=== PATIENT | male | born 1965 | race African-American/Black ===

== ENCOUNTER 2023-10-05 04:24 | Emergency (ER) | payer OTHER, SELFPAY ==
[2023-10-05 04:25] VITALS: BP 175/100
[2023-10-05 04:43] VITALS: BP 175/87
--- NOTE | 2023-10-05 04:54 | ED.GENMED ---
History of Present Illness
<DOMENIC Ralph - Last Filed: 10/05/23 05:20>
General
Chief Complaint: Musculo-Skeletal Complaint
Source: patient
Exam Limitations: none
Time Seen by Provider: 10/05/23 04:40
Nursing documentation reviewed up to this point in time: agreed with
Travel History
Have you had any contact with someone who has COVID-19?: No
Do you have any symptoms of coronavirus? Fever > 100 degrees, chills, cough, shortness of breath, sore throat, loss of taste or smell, muscle aches, or headache?: No
History of Present Illness
History of Present Illness:
This is a 58 year old male with a PMH of gout, who presents to the ED c/o left ankle pain and swelling x4 days. Pt states the pain has been worsening over the past couple days. He has been using a heating pad on it to no relief of his symptoms. Pt's
last gout flare was a couple of years ago but he states this pain feels similar to that. Pt has not taken any medications for the pain. He denies any fever, chills, CP, nauseam vomiting, or diarrhea. He does add that he has had intermittent upper
abdominal pain since the left ankle pain started. Pt denies alcohol, drug or tobacco use.
Past History
<DOMENIC Ralph - Last Filed: 10/05/23 05:20>
Past History
ED Past Medical History: Other (gout)
ED Past Surgical History: None
Social History
Tobacco: Non-smoker
Alcohol: None
Drug: None
Review of Systems
<DOMENIC Ralph - Last Filed: 10/05/23 05:20>
Review of Systems
Allergies reviewed?: Yes
All Other Systems: ROS reviewed and negative except as documented in HPI and ROS
Constitutional: Reports no symptoms; Denies fever or chills
EENT: Reports no symptoms; Denies other
Respiratory: Reports no symptoms; Denies trouble breathing
Cardiac: Reports no symptoms; Denies chest pain
ABD/GI: Reports abdominal pain; Denies nausea, vomiting or diarrhea
: Reports no symptoms
Musculoskeletal: Reports joint pain (left ankle) and joint swelling
Skin: Reports no symptoms
Neurological: Reports no symptoms
Psychiatric: Reports no symptoms
Phy Exam
<DOMENIC Ralph - Last Filed: 10/05/23 05:20>
General Physical Exam
General Presentation: well appearing and no apparent distress
General age: appears stated age
General Skin: warm and dry
General Habitus: obese
General Mental: alert
General Hydration: appears well hydrated
ENT Exam
ENT Exam: EOMI, pharynx normal, normocephalic and swallowing well
Cardiovascular Exam
Cardiovascular Exam: regular rate/rhythm, no edema, no murmur and normal peripheral pulses
Pulmonary Exam
Pulmonary Exam: lungs clear, no respiratory distress, no rales, no crackles, no rhonchi, no wheezing and no cough
Gastrointestinal Exam
Gastrointestinal Exam: normal bowel sounds, non tender, soft and non distended
Neurological Exam
Neurological Exam: alert and oriented x3
Musculoskeletal Exam
Musculoskeletal Exam: other (tender and edematous left ankle, limited ROM)
Skin Exam
Skin Exam: normal color and warm/dry
Psychiatric Exam
Psychiatric Exam: normal mood/affect
Course
<DOMENIC Ralph - Last Filed: 10/05/23 05:20>
Orders/Labs/Results
Orders:
Orders
10/05/23 05:05
Colchicine 1.2 mg PO NOW STA
Prednisone [Deltasone] 50 mg PO NOW STA
Vital Signs
Initial and Last Documented VS:
Initial Vital Signs
Temp Pulse Resp BP Pulse Ox
98.4 F 107 18 175/100 99
10/05/23 04:25 10/05/23 04:25 10/05/23 04:25 10/05/23 04:25 10/05/23 04:25
Last Documented Vital Signs
Temp Pulse Resp BP Pulse Ox
98.4 F 107 18 175/100 99
10/05/23 04:25 10/05/23 04:25 10/05/23 04:25 10/05/23 04:25 10/05/23 04:25
<Blaze Oakley DO - Last Filed: 10/05/23 05:08>
Orders/Labs/Results
Orders:
Orders
10/05/23 05:05
Colchicine 1.2 mg PO NOW STA
Prednisone [Deltasone] 50 mg PO NOW STA
Vital Signs
Initial and Last Documented VS:
Initial Vital Signs
Temp Pulse Resp BP Pulse Ox
98.4 F 107 18 175/100 99
10/05/23 04:25 10/05/23 04:25 10/05/23 04:25 10/05/23 04:25 10/05/23 04:25
Last Documented Vital Signs
Temp Pulse Resp BP Pulse Ox
98.4 F 107 18 175/100 99
10/05/23 04:25 10/05/23 04:25 10/05/23 04:25 10/05/23 04:25 10/05/23 04:25
<DOMENIC Ralph - Last Filed: 10/05/23 05:20>
*Critical Care Note
Total Time (30-74mins, 75-104mins- exclusive of procedures): Not Applicable
ED Attending Note
<DOMENIC Ralph - Last Filed: 10/05/23 05:20>
-
Portions of this chart may have been created with voice recognition software.� Occasional wrong word or��sound alike� substitutions may have occurred due to the inherent limitations of voice recognition software.
<Blaze Oakley, DO - Last Filed: 10/05/23 05:08>
ED Attending Note
Patient seen and examined by attending physician: Yes
I performed the substantive portion of visit, reviewed & personally made and approve the management plan that is documented in note by myself or SANAZ.: Yes
ED Attending Note:
I have seen and evaluated the patient with a [id number] encounter. I have spoken to the advance practicer provider and involved in the medical history, the physical exam, medical decision making.
Evaluation and management service: agree unless noted differently below.
Results interpretation: agree unless noted differently below.
Focused HPI: 58-year-old male presenting with left ankle pain and swelling. Patient states this is very similar to prior gout flareup. He denies any trauma or fever. Patient denies any change in his diet
Physical exam: Mild swelling and tenderness to left ankle. Erythema not appreciated. Distal extremity neurovascular intact
Medical Decision Making: Given his history and similar presentation, will give dose of colchicine and start on prednisone. Patient states he has no prior history of kidney issues
Discharge Plan
Departure
Patient Disposition: Home (Routine Discharge)
Date of Disposition: 10/05/23
Time of Disposition: 05:06
Patient with high blood pressure during this ER visit?: Yes
Discharge Problem:
Gout flare
Instructions: Gout ED, BLOOD PRESSURE
Prescriptions:
New
prednisone 20 mg tablet
40 mg PO DAILY Qty: 10 0RF
diclofenac potassium 50 mg tablet
50 mg PO BID Qty: 20 0RF
No Action
sulfamethoxazole-trimethoprim [Bactrim DS] 800-160 mg tablet
1 tab PO BID 7 Days Qty: 14 0RF
Activity Restrictions/Additional Instructions:
Please return for any worsening symptoms.
You may return at any time if you have further concerns.
Please follow up with your doctor at the first available appointment, preferably this week.
Thank you for choosing [facility].
Interventions
Interventions:
*Risk Screen - Suicide Last Done: 10/05/23 04:25
*General Assessment Last Done: 10/05/23 04:25
*Neglect/Abuse Screening Last Done: 10/05/23 04:25
ED- Fall Risk Assessment Last Done: 10/05/23 04:25
*ED COVID-19 Vaccine History Last Done: 10/05/23 04:25
[2023-10-05 05:00] VITALS: BP 164/91
[2023-10-05] MEDS: DELTASONE 50 MG PO (05:18)
[2023-10-05] MEDS: COLCHICINE 1.19999999999999996 MG PO (05:18)
== END 2023-10-05 05:51 | disposition home or self-care (01) ==
LOC: EMR 04:24
PROVIDERS: EMERGENCY PHYSICIAN Student in an Organized Health Care Education/Training Program
DX: M10.9 Gout, unspecified (principal)
CPT/HCPCS: 99282